=== PATIENT | male | born 1975 | race Caucasian/White ===

== ENCOUNTER → 2018-05-11 | Outpatient (CLI) | payer BC | LOC: GMAL 11:15 | PROVIDERS: ATTEND Family Medicine | DX: D51.3 Other dietary vitamin B12 deficiency anemia (principal); E55.9 Vitamin D deficiency, unspecified ==

== ENCOUNTER → 2019-06-01 | Outpatient (CLI) | payer BC | LOC: GMAL 10:25 | PROVIDERS: ATTEND Family Medicine | DX: Z00.01 Encounter for general adult medical examination with abnormal findings (principal) ==

== ENCOUNTER → 2019-06-17 | Outpatient (CLI) | payer BC ==
--- NOTE | 2019-06-19 11:02 | CT ---
EXAM: Abdomen/Pelvis w/wo Contrast CLINICAL HISTORY: ASYMPTOMATIC MICROSCOPIC HEMATURIA COMPARISON STUDY: None TECHNICAL: Pre and post IV contrast images were performed through the abdomen and pelvis. Delayed excretion phase urogram images were acquired. Sagittal and coronal reconstructions were obtained. FINDINGS: The visible portion of the chest is negative. The heart is not enlarged. Noncontrast images demonstrate no urinary calculi. After IV contrast administration, there are no enhancing abnormalities within the renal parenchyma. Very well-circumscribed low densities within the renal parenchyma are consistent with cysts. The left lower pole renal cyst measures 3.2 x 3.2 cm and has some mass effect on the left lower pole collecting system. The excretion phase images demonstrate contrast in nondilated collecting systems. The ureters are segmentally seen and nondilated. The visible portion of the urinary bladder is unremarkable. The liver, spleen, pancreas, and adrenal glands, enhance appropriately and demonstrate no acute abnormality. The gallbladder is intact and there is no evidence of biliary dilatation. There is no bowel obstruction or free air. There is no acute inflammatory process. The appendix is visible and normal. The aorta, IVC and retroperitoneum are negative. Structures within the pelvis are negative. The visible osseous structures are negative. IMPRESSION: 1. A 3.2 cm left lower pole renal cyst has mass effect upon the lower pole collecting system and it is uncertain if this would result in hematuria. 2. No enhancing renal mass, urinary calculi or visible bladder abnormality. This exam was performed according to our departmental dose-optimization program, which includes automated exposure control, adjustment of the mA and/or kV according to patient size and/or use of iterative reconstruction technique. Electronically signed by: Harpreet Singletary MD 06/19/2019 11:01 AM [facility]
== END ==
LOC: CT 13:25
PROVIDERS: ATTEND Family Medicine
DX: R31.21 Asymptomatic microscopic hematuria (principal); N28.1 Cyst of kidney, acquired

== ENCOUNTER 2019-07-22 05:37 | Day surgery (SDC) | payer BC ==
--- NOTE | 2019-07-20 15:55 | RAD ---
EXAM DESCRIPTION: Chest,2 Views CLINICAL HISTORY: HX of smoking, having surgery COMPARISON: None TECHNIQUE: PA/lateral FINDINGS: There is no acute appearing cardiac or pulmonary abnormality. Heart size is normal with normal pulmonary vascularity. No pleural effusion or pneumothorax. Lungs are clear with no consolidating infiltrate. Lateral view shows intact sternum and T-spine. IMPRESSION: No acute process is identified in the chest. Electronically signed by: Manny Llanes MD 07/20/2019 3:54 PM [employer]
[2019-07-22] MEDS ORDERED: LIDOCAINE 1% 10 ML VIAL INJ ONE (07:00)
[2019-07-22] MEDS ORDERED: MAGNESIUM SULFATE INJ 1 GM/2 ML VIAL ONE (07:00)
[2019-07-22] MEDS ORDERED: ceFAZolin SODIUM 1 GM VIAL ONE (07:00)
[2019-07-22] MEDS ORDERED: raNITIdine HCL INJ 25 MG/ML VIAL ONE (07:00)
[2019-07-22] MEDS ORDERED: KETOROLAC TROMETHAMINE INJ 30 MG/ML VIAL ONE (07:00)
[2019-07-22] MEDS ORDERED: PROPOFOL 200 MG/20 ML VIAL IV ONE (07:00)
[2019-07-22] MEDS ORDERED: DEXAMETHASONE INJ 10 MG/ML VIAL ONE (07:00)
[2019-07-22] MEDS ORDERED: SODIUM CHLORIDE 0.9% 50 ML VIAL ONE (07:00)
[2019-07-22] MEDS ORDERED: LACTATED RINGERS 1,000 ML ONE (07:04)
[2019-07-22] MEDS ORDERED: BUPIVACAINE 0.5% W/EPI 30 ML VIAL INJ ONE ×2 (07:17→08:20)
[2019-07-22] MEDS ORDERED: LEVALBUTEROL NEBS 1.25 MG/3 ML VIAL NEB ONE ×3 (07:58→09:39)
[2019-07-22] MEDS ORDERED: KETAMINE HCL 100 MG/ML VIAL ONE (08:07)
[2019-07-22] MEDS ORDERED: DEXMEDETOMIDINE HCL 200 MCG/2 ML INJ IV ONE (08:07)
[2019-07-22] MEDS ORDERED: fentaNYL CITRATE INJ 50 MCG/ML AMP ONE (08:07)
[2019-07-22] MEDS ORDERED: MIDAZOLAM INJ 2 MG/2 ML VIAL ONE (08:07)
[2019-07-22] MEDS ORDERED: ROCURONIUM BROMIDE 10 MG/ML VIAL ONE (08:18)
[2019-07-22] MEDS ORDERED: SUGAMMADEX SODIUM 200 MG/2 ML VIAL IV ONE (08:18)
--- NOTE | 2019-07-22 09:40 | OP ---
DATE OF PROCEDURE: 07/22/19 PREOPERATIVE DIAGNOSIS: 1. Perianal fistula into the scrotum. POSTOPERATIVE DIAGNOSIS: 1. Perianal fistula into the scrotum. PROCEDURE: 1. Perianal scrotal fistulotomy. SURGEON: Felipe Thurman MD. ANESTHESIA: General and local. FINDINGS: The opening was in the perineum approximately 5 cm from the anal opening. No affected internal glands were identified. It was a well-formed fistula, approximately 1 to 1.5 cm in circumference. It did end in the mid lower third of the scrotum. Portions were excised for pathology. A complete open fistulotomy was performed here. There was no evidence of additional tracts seen and certainly no evidence of that it went to or was part of the ureter. COMPLICATIONS: None. ESTIMATED BLOOD LOSS: Minimal. SPECIMEN: Portion of fistula. PLAN: Discharge. INDICATION: The patient has had drainage in this area for years. He presented. I could see a drainage tract during examination. I felt the cord going up into his right sided scrotum. He was consented for fistulotomy understanding it often is involving an internal anal fistula and possibly a need for fistulotomy here which could affect anal function, but very rarely. PROCEDURE: In prone jackknife position, he was prepped and draped in sterile fashion. Cheeks were taped apart. Upon pressure of the palpable cord, we did get fluid out at the perineum at the external opening, however, it was so small we could not even get the probe in initially. There was another small dimple nearby, but this was blind and did not go anywhere. Digital rectal exam did not reveal any evidence of tract to the anal canal. On speculum exam, there was no evidence of affected internal anal glands. He had some internal hemorrhoids, but nothing significant at this time. I opened that external opening a little bit in order to get down and when I was confident where the fistula was, we opened the skin, cut down to the tract. I made a small opening in it and now I was able to easily insert the probe along this well-formed fistula tract. It was essentially a tube. It was opened above the probe to its full length. Again, a portion of it was removed for pathology, but it was felt it will help granulation and healing. I did remove the infected granulation tissue. In manipulating after we were done, there was no evidence of any additional areas of involvement. No fluid coming, no drainage and, again, no evidence of that it was a fistula up to the urethra which I felt near the base of the penis and was far away from where we were operating at this point. There was good hemostasis. A lot of local anesthesia was placed. The patient tolerated the procedure. I discussed with his changing the gauze daily and okay to get it wet with showers and it will take weeks to heal, but this should take care of the problem. He was awakened and taken to Recovery to be discharged. #[id number] [facility]
[2019-07-22 11:12] VITALS: O2SAT 97
[2019-07-28 02:55] VITALS: BP 130/84; TEMP 97.5
== END 2019-07-22 11:00 | disposition home or self-care (01) ==
LOC: AMB 05:37
PROVIDERS: ATTEND Surgery
DX: K60.3 Anal fistula (principal); I10 Essential (primary) hypertension; Z88.5 Allergy status to narcotic agent; Z79.899 Other long term (current) drug therapy
CPT/HCPCS: 00902; 46270; 71046; 80048; 85014; 85018; 93005; 94640; A4216; J0690; J1100; J1885; J2250; J2780; J3010; J3475; J3490; J7120; J7614